=== PATIENT | male | born 2000 | race Caucasian/White ===

== ENCOUNTER 2020-02-13 20:17 | Emergency (ER) | payer OTHER ==
[~2020-02-13] VITALS: Ht 170.2 cm; Wt 45.4 kg
[2020-02-13 20:28] VITALS: Ht 170.2 cm; Wt 45.4 kg
[2020-02-13 22:16] LABS: BASOPHIL % 0.5 % (0-2); PLATELET COUNT 218 x10^3mcL (130-400); RED CELL DISTRIBUTION WIDTH 13.1 % (11.5-14.5)
[2020-02-13 22:40] LABS: ALBUMIN 4.3 g/dL (3.4-5.0); ALKALINE PHOSPHATASE 60 U/L (46-116); ALT/SGPT 17 U/L (16-63); AST/SGOT 16 U/L (15-37); BILIRUBIN DIRECT 0.11 mg/dL (0.0-0.2); BILIRUBIN TOTAL 0.6 mg/dL (0.20-1.00); CALCIUM 9.3 mg/dL (8.5-10.1); CARBON DIOXIDE 24.8 mmol/L (21-32); CHLORIDE SERUM 100 mmol/L (98-107); CREATININE SERUM 1.4 mg/dL (0.7-1.3); GFR1 > 60 mL/min; GLUCOSE SERUM 89 mg/dL (74-106); LIPASE 102 IU/L (73-393); POTASSIUM SERUM 3.7 mmol/L (3.5-5.1); SODIUM SERUM 139 mmol/L (136-145); TOTAL PROTEIN, SERUM 7.6 g/dL (6.4-8.2)
[2020-02-13 23:49] VITALS: BP 118/81
[2020-02-14 00:13] LABS: AMPHETAMINE QUAL UR NONE DETECTED (See below)
== END 2020-02-13 23:49 | disposition home or self-care (01) ==
LOC: ED 20:17
PROVIDERS: Student in an Organized Health Care Education/Training Program
DX: R44.0 Auditory hallucinations (principal); S37.009A Unspecified injury of unspecified kidney, initial encounter; X58.XXXA Exposure to other specified factors, initial encounter; Y93.89 Activity, other specified; Y92.89 Other specified places as the place of occurrence of the external cause; Y99.8 Other external cause status
CPT/HCPCS: 84439; G0480

== ENCOUNTER 2020-06-28 17:12 | Emergency (ER) | payer OTHER ==
[~2020-06-28] VITALS: Ht 167.6 cm; Wt 44.9 kg
[2020-06-28 17:42] VITALS: Ht 167.6 cm; Wt 44.9 kg
[2020-06-28 19:22] LABS: PLATELET COUNT 241 x10^3mcL (152-348)
[2020-06-28 19:24] LABS: BASOPHIL % 0.4 % (0.2-1.5); RED CELL DISTRIBUTION WIDTH 12.7 % (12.1-16.2)
[2020-06-28 19:43] LABS: CALCIUM 9.3 mg/dL (8.5-10.1); CARBON DIOXIDE 28.4 mmol/L (21-32); CHLORIDE SERUM 103 mmol/L (98-107); CREATININE SERUM 1.2 mg/dL (0.7-1.3); GFR1 > 60 mL/min; GLUCOSE SERUM 85 mg/dL (74-106); POTASSIUM SERUM 3.9 mmol/L (3.5-5.1); SODIUM SERUM 140 mmol/L (136-145)
[2020-06-28 19:50] LABS: ALBUMIN 4.6 g/dL (3.4-5.0); ALKALINE PHOSPHATASE 72 U/L (46-116); ALT/SGPT 28 U/L (16-63); AST/SGOT 20 U/L (15-37); BILIRUBIN TOTAL 0.7 mg/dL (0.20-1.00)
[2020-06-29 09:01] LABS: AMPHETAMINE QUAL UR NONE DETECTED (See below)
[2020-06-29 10:22] VITALS: BP 120/75
== END 2020-06-29 10:22 | disposition designated cancer center or children's hospital (05) ==
LOC: ED 17:12
PROVIDERS: Emergency Medicine
DX: F23 Brief psychotic disorder (principal); Z20.828 Contact with and (suspected) exposure to other viral communicable diseases
CPT/HCPCS: G0480; U0003